=== PATIENT | female | born 1990 | race Caucasian/White ===

== ENCOUNTER 2020-08-05 19:59 | Inpatient (IN) | payer BC ==
[~2020-08-05] VITALS: Ht 167.6 cm; Wt 66.4 kg
[2020-08-05] MEDS ORDERED: FENTANYL-0.9 % NACL/PF 100 ML IV PRN (20:05)
[2020-08-05] MEDS ORDERED: midazolam 100mg in NS 100ml 100 ML IV PRN (20:05)
[2020-08-05] MEDS ORDERED: ondansetron/PF 4mg/2ml inj IV ONE (20:40)
[2020-08-05 20:45] LABS: ABG BASE EXCESS -5.5 mmol/L (-2.0-2.0); ABG HCO3 21.1 mmol/L (22.0-26.0); ABG PCO2 (T) 42.9 mmHg (32.0-45.0); ABG PO2 (T) 91.5 mmHg (75.0-100.0); ALLEN'S TEST POSITIVE; FCOHb 0.4 % (0.0-3.9); FMetHb 0.3 % (0.0-1.5); FO2Hb 96.3 % (94-97); PATIENT TEMPERATURE 35.8; PEEP 5 cm H2O; RESPIRATORY RATE 16 b/min; TIDAL VOLUME 400 mL; TOTAL HEMOGLOBIN 14.6 G/dl (12.0-16.0)
--- NOTE | 2020-08-05 21:00 | NUR ---
TALKED TO PT SISTER "CORA" ON PHONE, GAVE UPDATE, NO FURTHER QUESTIONS
[2020-08-05 21:03] LABS: BASOPHILS % (AUTO) 0.1 % (0-1); EOSINOPHILS # (AUTO) 0.1 X10'3 (0-0.9); EOSINOPHILS % (AUTO) 0.4 % (0-6); HEMATOCRIT 42.7 % (35.0-45.0); HEMOGLOBIN 13.7 g/dl (12.0-16.0); LYMPHOCYTES # (AUTO) 0.7 X10'3 (1.1-4.8); LYMPHOCYTES % (AUTO) 4.2 % (21-51); MEAN CORPUSCULAR HEMOGLOBIN 29.5 PG (27.0-31.0); MEAN CORPUSCULAR HGB CONC 32.1 g/dL (33.0-36.5); MEAN CORPUSCULAR VOLUME 91.8 FL (78-98); MONOCYTES # (AUTO) 1.1 X10'3 (0-0.9); NEUTROPHILS # (AUTO) 15.9 X10'3 (1.8-7.7); NEUTROPHILS % (AUTO) 89.3 % (42-75); PLATELET COUNT 303 X10'3 (140-440); RED BLOOD COUNT 4.65 X10'6 (4.20-5.60); RED CELL DISTRIBUTION WIDTH 13.8 % (11.5-14.5); WHITE BLOOD COUNT 17.7 X10'3 (4.5-11.0)
[2020-08-05 21:17] LABS: ALANINE AMINOTRANSFERASE 67 U/L (12-78); ALBUMIN 3.1 G/DL (3.4-5.0); ALBUMIN/GLOBULIN RATIO 1.2 (1.1-1.5); ALKALINE PHOSPHATASE 43 IU/L (46-116); ANION GAP 9 (8-16); ASPARTATE AMINO TRANSFERASE 65 U/L (10-37); BILIRUBIN,TOTAL 0.2 MG/DL (0.1-1.0); BLOOD UREA NITROGEN 9 MG/DL (7-18); BUN/CREATININE RATIO 11.7 (6.6-38.0); CALCIUM 6.7 MG/DL (8.5-10.1); CHLORIDE 111 MMOL/L (99-107); CREATININE 0.77 MG/DL (0.40-0.90); GLUCOSE 115 MG/DL (70-104); POTASSIUM 3.7 MMOL/L (3.5-5.1); SODIUM 144 MMOL/L (135-145); TOTAL PROTEIN 5.7 G/DL (6.4-8.2); eGFR 90 ML/MIN
--- NOTE | 2020-08-05 21:18 | NUR ---
PT BP 83/52, DECREASED SEDATION, NO EFFECT ON BP. EDWARDS AWARE. ORDERED 1 L NS BOLUS
--- NOTE | 2020-08-05 21:35 | NUR ---
LEON PREPARING FOR CENTRAL LINE PROCEDURE, PT BP 80/50, LEON VERBAL ORDER TO START LEVOPHED
[2020-08-05] MEDS ORDERED: NORepinephrine 8mg/ 250ml NS 250 ML IV SCH (21:40)
[2020-08-05] MEDS ORDERED: NORepinephrine 8mg/ 250ml NS 250 ML IV PRN (21:45)
[2020-08-05] MEDS ORDERED: acetaminophen 325mg tablet PO PRN ×2 (21:45)
[2020-08-05] MEDS ORDERED: Neutra Phos packet PO PRN (21:45)
[2020-08-05] MEDS ORDERED: sodium phosphate inj. 30 MMOL in dextrose 5%-water 250 ML IV PRN (21:45)
[2020-08-05] MEDS ORDERED: magnesium 4gm in 100ml NS 100 ML IV PRN (21:45)
[2020-08-05] MEDS ORDERED: sodium phosphate inj. 15 MMOL in dextrose 5%-water 250 ML IV PRN (21:45)
[2020-08-05] MEDS ORDERED: magnesium hydroxide 30ml (MOM) UD suspension PO PRN (21:45)
[2020-08-05] MEDS ORDERED: acetaminophen 650mg rectal suppository RC PRN (21:45)
[2020-08-05] MEDS ORDERED: potassium Cl 20mEq/100mL bag 100 ML IV PRN (21:45)
[2020-08-05 22:14] LABS: URINE AMPHETAMINE SCREEN NEGATIVE (Neg); URINE BARBITUATE SCREEN NEGATIVE (Neg); URINE BENZODIAZEPINES SCREEN POSITIVE (Neg); URINE CANNABINOID SCREEN NEGATIVE (Neg); URINE COCAINE SCREEN NEGATIVE (Neg); URINE METHADONE SCREEN NEGATIVE (Neg); URINE OPIATE SCREEN NEGATIVE (Neg); URINE PHENCYCLIDINE SCREEN NEGATIVE (Neg)
[2020-08-05 22:29] LABS: MAGNESIUM 2.2 MG/DL (1.5-2.4); PHOSPHORUS 4.5 MG/DL (2.3-4.5)
[2020-08-05] MEDS: ipratropium/albuterol 3ml nebule NEB SCH (22:44)
[2020-08-05] MEDS: CefTRIAXone 2gm/D5W 50ml BAG 50 ML IV SCH (23:13)
[2020-08-05] MEDS: sodium chloride 0.45% 1,000 ML IV SCH (23:14)
[2020-08-06] VITALS (15 sets, daily range): BP systolic 96–119; BP diastolic 47–72
[2020-08-06 00:10] LABS: CLARITY,URINE CLEAR (Clear); COLOR,URINE YELLOW (Yellow); GLUCOSE, URINE 250 mg/dl (Neg); KETONES,URINE TRACE mg/dl (Neg); LEUKOCYTE ESTERASE ,URINE NEGATIVE (Neg); NITRITES, URINE NEGATIVE (Neg); OCCULT BLOOD,URINE NEGATIVE (Neg); PROTEIN,URINE NEGATIVE (Neg); UROBILINOGEN,URINE 0.2 E.U/dL (0.2-1.0)
[2020-08-06 00:13] LABS: UA COLLECTION TYPE FOLEY CATH
[2020-08-06] MEDS: azithromycin/NS 500mg/250ml 250 ML IV SCH ×2 (00:18→20:09)
[2020-08-06] MEDS: albuterol 2.5 MG/3 ML nebule NEB PRN ×3 (01:27→17:14)
[2020-08-06] MEDS: methylPREDNISolone sod succ 125mg/2ml vial IV SCH ×4 (01:52→20:10)
[2020-08-06] MEDS: ondansetron/PF 4mg/2ml inj IV PRN (01:52)
--- NOTE | 2020-08-06 01:54 | NUR ---
TURNED PATIENT TO RIGHT SIDE, PT BECAME AGITATED AND VOMITED. SUCTIONED AND ZOFRAN 4 MG PRN ADMINISTERED. VERSED BOLUSED. PT NOW LYING COMFORTABLY, RR EVEN AND UNLABORED, NO SIGNS OF DISTRESS. WILL CONTINUE TO MONITOR
[2020-08-06 03:05] LABS: BASOPHILS % (AUTO) 0.3 % (0-1); EOSINOPHILS % (AUTO) 0 % (0-6); HEMATOCRIT 39.6 % (35.0-45.0); HEMOGLOBIN 12.7 g/dl (12.0-16.0); LYMPHOCYTES # (AUTO) 0.4 X10'3 (1.1-4.8); LYMPHOCYTES % (AUTO) 3.2 % (21-51); MEAN CORPUSCULAR HEMOGLOBIN 29.3 PG (27.0-31.0); MEAN CORPUSCULAR HGB CONC 32.1 g/dL (33.0-36.5); MEAN CORPUSCULAR VOLUME 91.4 FL (78-98); MONOCYTES # (AUTO) 0.2 X10'3 (0-0.9); MONOCYTES % (AUTO) 1.6 % (2-12); NEUTROPHILS # (AUTO) 11.7 X10'3 (1.8-7.7); NEUTROPHILS % (AUTO) 94.9 % (42-75); PLATELET COUNT 334 X10'3 (140-440); RED BLOOD COUNT 4.33 X10'6 (4.20-5.60); RED CELL DISTRIBUTION WIDTH 14.1 % (11.5-14.5); WHITE BLOOD COUNT 12.3 X10'3 (4.5-11.0)
[2020-08-06] MEDS: ipratropium/albuterol 3ml nebule NEB SCH ×6 (03:12→23:23)
[2020-08-06 03:17] LABS: PARTIAL THROMBOPLASTIN TIME 21 SECONDS (22-32)
[2020-08-06 03:22] LABS: ALANINE AMINOTRANSFERASE 67 U/L (12-78); ALBUMIN 3.4 G/DL (3.4-5.0); ALBUMIN/GLOBULIN RATIO 1.2 (1.1-1.5); ALKALINE PHOSPHATASE 45 IU/L (46-116); ANION GAP 14 (8-16); ASPARTATE AMINO TRANSFERASE 46 U/L (10-37); BILIRUBIN,TOTAL 0.4 MG/DL (0.1-1.0); BLOOD UREA NITROGEN 8 MG/DL (7-18); BUN/CREATININE RATIO 11.1 (6.6-38.0); CALCIUM 7.2 MG/DL (8.5-10.1); CHLORIDE 106 MMOL/L (99-107); CREATININE 0.72 MG/DL (0.40-0.90); GLUCOSE 166 MG/DL (70-104); POTASSIUM 3.8 MMOL/L (3.5-5.1); SODIUM 140 MMOL/L (135-145); TOTAL CARBON DIOXIDE 20.1 MMOL/L (24-32); TOTAL PROTEIN 6.3 G/DL (6.4-8.2); eGFR > 90 ML/MIN
[2020-08-06 03:28] LABS: MAGNESIUM 1.8 MG/DL (1.5-2.4); PHOSPHORUS 1.9 MG/DL (2.3-4.5)
--- NOTE | 2020-08-06 05:25 | NUR ---
RT SUCTIONING TUBE. DURING SUCTIONING PT BEGAN VOMITING, AWAKE, AND ATTEMPTED TO SIT UP. VERSED 1 MG BOLUSED.
[2020-08-06 06:06] LABS: ABG BASE EXCESS -5.3 mmol/L (-2.0-2.0); ABG HCO3 19.1 mmol/L (22.0-26.0); ABG OXYGEN SATURATION 95.4 % (94-97); ABG PCO2 (T) 35.1 mmHg (32.0-45.0); ABG PO2 (T) 79.7 mmHg (75.0-100.0); ALLEN'S TEST POSITIVE; FCOHb 0.2 % (0.0-3.9); FMetHb 0.2 % (0.0-1.5); PATIENT TEMPERATURE 37.7; PEEP 5 cm H2O; RESPIRATORY RATE 16 b/min; TIDAL VOLUME 400 mL; TOTAL HEMOGLOBIN 13.2 G/dl (12.0-16.0)
[2020-08-06] MEDS ORDERED: FLUT1AER PO (06:11)
[2020-08-06] MEDS: FENTANYL-0.9 % NACL/PF 100 ML IV PRN ×2 (06:39→16:51)
--- NOTE | 2020-08-06 06:59 | NUR ---
RT ISAEL AT BEDSIDE TO ASSESS PATIENT. MADE AWARE VENT ALARM FOR PEEK PRESSURE ALARM PER NOC SHIFT HAS BEEN ALARMING FOR MOST OF NIGHT, RT TO ADMINISTER BREATHING TREATMENT PER ORDER (SEE EMAR).
--- NOTE | 2020-08-06 07:31 | NUR ---
CORA ROMERO "SISTER" [phone].
[2020-08-06] MEDS: docusate sodium 100mg/10ml UD cup PO SCH ×2 (08:00→20:09)
[2020-08-06] MEDS: pantoprazole 40 MG vial IV SCH (08:09)
[2020-08-06] MEDS: enoxaparin 40mg/0.4ml syringe SUBCUT SCH (08:09)
--- NOTE | 2020-08-06 09:56 | NUR ---
[employer]CIAL [employer]ER AT BEDSIDE.
--- NOTE | 2020-08-06 10:10 | NUR ---
DR ARCHULETA IN TO ASSESS PATIENT AT THIS TIME TIME. ALL QUESTIONS AND CONCERNS ADDRESSED.
--- NOTE | 2020-08-06 11:22 | NUR ---
RT AT BEDSIDE TO ASSESS PATIENT/GIVE BREATHING TX (SEE EMAR).
--- NOTE | 2020-08-06 12:29 | NUR ---
Patient arrived from ED, ventilator followed directly after, patient was transfered to the bed, skin was assessed, patient's IJ functioning properly with gtts running, jaquez catheter present, weighed and repositioned in bed. Notified Dr. Naqvi that the patient was in room, will continue to monitor.
--- NOTE | 2020-08-06 13:08 | NUR ---
Initial: Pt intubated DX acute respiratory failure s/p cardiac arrest, possible aspiration from vomiting episode in ED, and status asthmaticus per EMR. Hx asthma negative for flu and covid-19 per EMR. L NG in place w/ MAP 76 this AM. Pending scaled wt this admit; EN recs below using IBW pending updated wt. Will continue to monitor for nutrition support needs on vent. Rec: 1. IF TF; Vital AF at 60ml/hr goal 2. IF TF; additional water flush 200ml Q4 3. IF TF; PALB Q /; daily wts 4. routine bowel care 5. upon extubation; advance diet as medically indicated to regular; consider [employer] BSS given possible vomiting w/ aspiration in ER per EMR Addendum: 08/06/20 at [address] Amended: Links added.
[2020-08-06] MEDS: midazolam 100mg in NS 100ml 100 ML IV PRN ×2 (13:56→20:19)
[2020-08-06] MEDS: sodium chloride 0.45% 1,000 ML IV SCH (15:35)
[2020-08-06 16:16] LABS: ABG BASE EXCESS -8.4 mmol/L (-2.0-2.0); ABG HCO3 16.7 mmol/L (22.0-26.0); ABG OXYGEN SATURATION 90.1 % (94-97); ABG PCO2 (T) 33.7 mmHg (32.0-45.0); ABG PO2 (T) 58.6 mmHg (75.0-100.0); ALLEN'S TEST POSITIVE; FMetHb 0.2 % (0.0-1.5); FO2Hb 89.9 % (94-97); PEEP 8 cm H2O; RESPIRATORY RATE 16 b/min; TIDAL VOLUME 400 mL; TOTAL HEMOGLOBIN 12.9 G/dl (12.0-16.0)
--- NOTE | 2020-08-06 18:20 | NUR ---
Patient in room CICU 2010. I have received report from MELISSA Flowers and had the opportunity to ask questions and assume patient care. Patient is intubated and sedated, resting comfortably. I will continue to monitor.
[2020-08-06] MEDS ORDERED: iohexol 350MG/ML 100ml bottle IV ONE (19:41)
[2020-08-06] MEDS: CISatracurium besylate inj. 100 MG in normal saline 100ml IV soln 90 ML IV SCH (19:44)
--- NOTE | 2020-08-06 20:00 | NUR ---
Urine output is poor, I flushed her catheter and urine is flowing now, I will continue to monitor.
[2020-08-06] MEDS: lactobacillus rhamnosus 10,000 MMU CELLS/CAPSULE PO SCH (20:09)
[2020-08-06] MEDS ORDERED: labetalol 20mg/4ml (5mg/ml) syringe IV PRN (20:10)
[2020-08-06] MEDS: CefTRIAXone 2gm/D5W 50ml BAG 50 ML IV SCH (22:07)
[2020-08-07] VITALS (23 sets, daily range): BP systolic 62–125; BP diastolic 55–76
[2020-08-07] MEDS: sodium chloride 0.45% 1,000 ML IV SCH ×3 (00:25→20:03)
[2020-08-07] MEDS: albuterol 2.5 MG/3 ML nebule NEB PRN ×4 (01:12→16:56)
[2020-08-07] MEDS: methylPREDNISolone sod succ 125mg/2ml vial IV SCH ×4 (02:17→20:03)
[2020-08-07] MEDS: mineral oil/petrolatum ophthal oint EACHEYE SCH ×4 (02:17→20:02)
[2020-08-07] MEDS: FENTANYL-0.9 % NACL/PF 100 ML IV PRN ×3 (02:17→14:56)
[2020-08-07] MEDS: midazolam 100mg in NS 100ml 100 ML IV PRN ×3 (02:51→16:15)
[2020-08-07] MEDS: ipratropium/albuterol 3ml nebule NEB SCH ×6 (02:56→23:32)
[2020-08-07 03:13] LABS: BASOPHILS % (AUTO) 0.1 % (0-1); EOSINOPHILS % (AUTO) 0 % (0-6); HEMATOCRIT 35.8 % (35.0-45.0); HEMOGLOBIN 11.5 g/dl (12.0-16.0); LYMPHOCYTES # (AUTO) 0.8 X10'3 (1.1-4.8); LYMPHOCYTES % (AUTO) 4.2 % (21-51); MEAN CORPUSCULAR HEMOGLOBIN 29.4 PG (27.0-31.0); MEAN CORPUSCULAR HGB CONC 32.2 g/dL (33.0-36.5); MEAN CORPUSCULAR VOLUME 91.2 FL (78-98); MONOCYTES # (AUTO) 0.9 X10'3 (0-0.9); MONOCYTES % (AUTO) 4.8 % (2-12); NEUTROPHILS # (AUTO) 16.2 X10'3 (1.8-7.7); NEUTROPHILS % (AUTO) 90.9 % (42-75); PLATELET COUNT 320 X10'3 (140-440); RED BLOOD COUNT 3.92 X10'6 (4.20-5.60); WHITE BLOOD COUNT 17.9 X10'3 (4.5-11.0)
[2020-08-07 03:22] LABS: ALANINE AMINOTRANSFERASE 50 U/L (12-78); ALBUMIN 3.4 G/DL (3.4-5.0); ALBUMIN/GLOBULIN RATIO 1.2 (1.1-1.5); ALKALINE PHOSPHATASE 40 IU/L (46-116); ANION GAP 10 (8-16); ASPARTATE AMINO TRANSFERASE 34 U/L (10-37); BILIRUBIN,TOTAL 0.2 MG/DL (0.1-1.0); BLOOD UREA NITROGEN 8 MG/DL (7-18); BUN/CREATININE RATIO 12.1 (6.6-38.0); CALCIUM 7.6 MG/DL (8.5-10.1); CHLORIDE 106 MMOL/L (99-107); CREATININE 0.66 MG/DL (0.40-0.90); GLUCOSE 159 MG/DL (70-104); PHOSPHORUS 2.8 MG/DL (2.3-4.5); POTASSIUM 3.4 MMOL/L (3.5-5.1); SODIUM 140 MMOL/L (135-145); TOTAL CARBON DIOXIDE 23.7 MMOL/L (24-32); TOTAL PROTEIN 6.2 G/DL (6.4-8.2); eGFR > 90 ML/MIN
[2020-08-07 04:21] LABS: ABG BASE EXCESS -5.1 mmol/L (-2.0-2.0); ABG HCO3 19.6 mmol/L (22.0-26.0); ABG OXYGEN SATURATION 96.8 % (94-97); ABG PCO2 (T) 34.3 mmHg (32.0-45.0); ABG PO2 (T) 90.8 mmHg (75.0-100.0); FMetHb 0.3 % (0.0-1.5); FO2Hb 96.5 % (94-97); PATIENT TEMPERATURE 36.5; PEEP 5 cm H2O; RESPIRATORY RATE 16 b/min; TIDAL VOLUME 400 mL; TOTAL HEMOGLOBIN 12.7 G/dl (12.0-16.0)
[2020-08-07] MEDS: lactobacillus rhamnosus 10,000 MMU CELLS/CAPSULE PO SCH ×2 (07:57→20:02)
[2020-08-07] MEDS: pantoprazole 40 MG vial IV SCH (07:57)
[2020-08-07] MEDS: docusate sodium 100mg/10ml UD cup PO SCH ×2 (07:57→20:02)
[2020-08-07] MEDS: enoxaparin 40mg/0.4ml syringe SUBCUT SCH (07:58)
--- NOTE | 2020-08-07 09:45 | NUR ---
ADVANCED NG APPROX 6CM PER DR SIBLEY RECOMMENDATION
[2020-08-07] MEDS ORDERED: dexmedetomidin/NS 400mcg/100ml 100 ML IV SCH (12:15)
[2020-08-07] MEDS: dexmedetomidine/D5W 100mL 100 ML IV SCH ×2 (12:36→22:14)
--- NOTE | 2020-08-07 18:43 | NUR ---
Patient in room CICU 2010. I have received report from MELISSA Jenkins and had the opportunity to ask questions and assume patient care. Patient is still intubated/sedated.
[2020-08-07] MEDS: budesonide 0.5mg/2ml UD nebule IH SCH (19:50)
[2020-08-07] MEDS: azithromycin/NS 500mg/250ml 250 ML IV SCH (20:03)
[2020-08-07] MEDS: CefTRIAXone 2gm/D5W 50ml BAG 50 ML IV SCH (22:05)
[2020-08-08] VITALS (23 sets, daily range): BP systolic 123–159; BP diastolic 76–102
[2020-08-08] MEDS: FENTANYL-0.9 % NACL/PF 100 ML IV PRN ×2 (00:32→12:59)
[2020-08-08] MEDS: mineral oil/petrolatum ophthal oint EACHEYE SCH ×4 (02:24→20:05)
[2020-08-08] MEDS: methylPREDNISolone sod succ 125mg/2ml vial IV SCH ×4 (02:24→20:06)
[2020-08-08] MEDS: ipratropium/albuterol 3ml nebule NEB SCH ×6 (02:54→23:24)
[2020-08-08 02:58] LABS: BASOPHILS % (AUTO) 0 % (0-1); EOSINOPHILS % (AUTO) 0 % (0-6); HEMATOCRIT 35.9 % (35.0-45.0); HEMOGLOBIN 11.6 g/dl (12.0-16.0); LYMPHOCYTES # (AUTO) 0.5 X10'3 (1.1-4.8); LYMPHOCYTES % (AUTO) 3.4 % (21-51); MEAN CORPUSCULAR HEMOGLOBIN 29.3 PG (27.0-31.0); MEAN CORPUSCULAR HGB CONC 32.2 g/dL (33.0-36.5); MEAN PLATELET VOLUME 7.7 FL (7.4-10.4); MONOCYTES # (AUTO) 0.6 X10'3 (0-0.9); NEUTROPHILS # (AUTO) 12.8 X10'3 (1.8-7.7); NEUTROPHILS % (AUTO) 92.6 % (42-75); PLATELET COUNT 284 X10'3 (140-440); RED BLOOD COUNT 3.95 X10'6 (4.20-5.60); RED CELL DISTRIBUTION WIDTH 14.1 % (11.5-14.5); WHITE BLOOD COUNT 13.9 X10'3 (4.5-11.0)
[2020-08-08] MEDS: midazolam 100mg in NS 100ml 100 ML IV PRN ×2 (03:01→16:47)
[2020-08-08 03:12] LABS: ALANINE AMINOTRANSFERASE 70 U/L (12-78); ALBUMIN 3.4 G/DL (3.4-5.0); ALBUMIN/GLOBULIN RATIO 1.2 (1.1-1.5); ALKALINE PHOSPHATASE 45 IU/L (46-116); ANION GAP 8 (8-16); ASPARTATE AMINO TRANSFERASE 75 U/L (10-37); BILIRUBIN,TOTAL 0.3 MG/DL (0.1-1.0); BLOOD UREA NITROGEN 10 MG/DL (7-18); BUN/CREATININE RATIO 16.9 (6.6-38.0); CALCIUM 8.2 MG/DL (8.5-10.1); CHLORIDE 106 MMOL/L (99-107); CREATININE 0.59 MG/DL (0.40-0.90); GLUCOSE 150 MG/DL (70-104); MAGNESIUM 2.6 MG/DL (1.5-2.4); PHOSPHORUS 2.6 MG/DL (2.3-4.5); POTASSIUM 3.5 MMOL/L (3.5-5.1); SODIUM 140 MMOL/L (135-145); TOTAL CARBON DIOXIDE 25.6 MMOL/L (24-32); TOTAL PROTEIN 6.2 G/DL (6.4-8.2); eGFR > 90 ML/MIN
[2020-08-08 03:50] LABS: ABG BASE EXCESS -0.9 mmol/L (-2.0-2.0); ABG HCO3 22.2 mmol/L (22.0-26.0); ABG OXYGEN SATURATION 96.9 % (94-97); ABG PCO2 (T) 30.7 mmHg (32.0-45.0); ABG PO2 (T) 80.9 mmHg (75.0-100.0); FCOHb 0.3 % (0.0-3.9); FMetHb 0.2 % (0.0-1.5); FO2Hb 96.4 % (94-97); PEEP 5 cm H2O; RESPIRATORY RATE 16 b/min; TIDAL VOLUME 400 mL; TOTAL HEMOGLOBIN 12.8 G/dl (12.0-16.0)
[2020-08-08] MEDS: sodium chloride 0.45% 1,000 ML IV SCH ×3 (05:03→19:58)
--- NOTE | 2020-08-08 06:23 | NUR ---
Problems reprioritized. Patient report given, questions answered & plan of care reviewed with MELISSA Barroso.
[2020-08-08] MEDS: budesonide 0.5mg/2ml UD nebule IH SCH ×2 (07:35→19:11)
[2020-08-08] MEDS: pantoprazole 40 MG vial IV SCH (09:11)
[2020-08-08] MEDS: docusate sodium 100mg/10ml UD cup PO SCH ×2 (09:11→20:06)
[2020-08-08] MEDS: lactobacillus rhamnosus 10,000 MMU CELLS/CAPSULE PO SCH ×2 (09:11→20:06)
[2020-08-08] MEDS: dexmedetomidine/D5W 100mL 100 ML IV SCH (09:12)
[2020-08-08] MEDS: enoxaparin 40mg/0.4ml syringe SUBCUT SCH (09:13)
--- NOTE | 2020-08-08 14:09 | NUR ---
TF consult: Pt remains intubated, documented with an NG tube in place. TF recommendations below. Still no documented BM, pt receiving routine bowel care with PRN bowel care available. Will continue to follow closely. Rec: 1. Continuous TF using Vital AF with 60 mL/hr goal. To begin at 20 mL/hr and advance by 20 mL Q8H as tolerated to goal rate. To provide: 1440 mL total volume/day, 1728 kcal, 108 g protein, and 1168 mL water 2. Additional 100 mL water flush Q4H 3. PALB Q /; daily wts 4. routine bowel care 5. upon extubation, advance diet as medically indicated to regular; consider BSS with ST given possible vomiting with aspiration in ER per EMR Addendum: 08/08/20 at [address] Amended: Links added.
--- NOTE | 2020-08-08 14:42 | NUR ---
Tube feeding started with Vital AF per md orders and director [employer] recommendations.
[2020-08-08] MEDS: CISatracurium besylate inj. 100 MG in normal saline 100ml IV soln 90 ML IV SCH (16:00)
--- NOTE | 2020-08-08 18:20 | NUR ---
Patient in room CICU 2010. I have received report from MELISSA Barroso and had the opportunity to ask questions and assume patient care. Patient is still intubated and sedated, the plan is to hold tube feed and d/c sedation @4am.
[2020-08-08] MEDS: azithromycin/NS 500mg/250ml 250 ML IV SCH (20:06)
[2020-08-08] MEDS: CefTRIAXone 2gm/D5W 50ml BAG 50 ML IV SCH (22:24)
[2020-08-09] VITALS (16 sets, daily range): BP systolic 107–134; BP diastolic 73–96
[2020-08-09] MEDS: mineral oil/petrolatum ophthal oint EACHEYE SCH ×3 (02:19→14:00)
[2020-08-09] MEDS: methylPREDNISolone sod succ 125mg/2ml vial IV SCH ×3 (02:19→14:19)
--- NOTE | 2020-08-09 02:19 | NUR ---
Patient waking up, pulled catheter out with her feet. I will put a new catheter in.
[2020-08-09 02:44] LABS: BASOPHILS % (AUTO) 0 % (0-1); EOSINOPHILS % (AUTO) 0 % (0-6); HEMATOCRIT 36.8 % (35.0-45.0); HEMOGLOBIN 11.9 g/dl (12.0-16.0); LYMPHOCYTES # (AUTO) 0.5 X10'3 (1.1-4.8); LYMPHOCYTES % (AUTO) 3.5 % (21-51); MEAN CORPUSCULAR HEMOGLOBIN 29.3 PG (27.0-31.0); MEAN CORPUSCULAR HGB CONC 32.4 g/dL (33.0-36.5); MEAN CORPUSCULAR VOLUME 90.3 FL (78-98); MEAN PLATELET VOLUME 7.8 FL (7.4-10.4); MONOCYTES # (AUTO) 1.1 X10'3 (0-0.9); MONOCYTES % (AUTO) 8.3 % (2-12); NEUTROPHILS # (AUTO) 11.5 X10'3 (1.8-7.7); NEUTROPHILS % (AUTO) 88.2 % (42-75); PLATELET COUNT 305 X10'3 (140-440); RED BLOOD COUNT 4.08 X10'6 (4.20-5.60); RED CELL DISTRIBUTION WIDTH 13.9 % (11.5-14.5)
[2020-08-09 03:11] LABS: ALANINE AMINOTRANSFERASE 211 U/L (12-78); ALBUMIN 3.3 G/DL (3.4-5.0); ALBUMIN/GLOBULIN RATIO 1.1 (1.1-1.5); ALKALINE PHOSPHATASE 48 IU/L (46-116); ANION GAP 5 (8-16); ASPARTATE AMINO TRANSFERASE 195 U/L (10-37); BILIRUBIN,TOTAL 0.6 MG/DL (0.1-1.0); BLOOD UREA NITROGEN 11 MG/DL (7-18); BUN/CREATININE RATIO 20.8 (6.6-38.0); CALCIUM 8.5 MG/DL (8.5-10.1); CHLORIDE 105 MMOL/L (99-107); CREATININE 0.53 MG/DL (0.40-0.90); GLUCOSE 129 MG/DL (70-104); MAGNESIUM 2.5 MG/DL (1.5-2.4); PHOSPHORUS 2.2 MG/DL (2.3-4.5); POTASSIUM 3.5 MMOL/L (3.5-5.1); SODIUM 138 MMOL/L (135-145); TOTAL CARBON DIOXIDE 27.7 MMOL/L (24-32); TOTAL PROTEIN 6.2 G/DL (6.4-8.2); eGFR > 90 ML/MIN
[2020-08-09] MEDS: ipratropium/albuterol 3ml nebule NEB SCH ×6 (03:13→23:47)
[2020-08-09 03:51] LABS: ABG BASE EXCESS 1.1 mmol/L (-2.0-2.0); ABG HCO3 25.3 mmol/L (22.0-26.0); ABG OXYGEN SATURATION 97.1 % (94-97); ABG PCO2 (T) 37.4 mmHg (32.0-45.0); ABG PO2 (T) 87.2 mmHg (75.0-100.0); FCOHb 0.3 % (0.0-3.9); FMetHb 0.1 % (0.0-1.5); FO2Hb 96.7 % (94-97); PATIENT TEMPERATURE 36.1; PEEP 5 cm H2O; RESPIRATORY RATE 14 b/min; TIDAL VOLUME 400 mL; TOTAL HEMOGLOBIN 12.8 G/dl (12.0-16.0)
[2020-08-09] MEDS: sodium chloride 0.45% 1,000 ML IV SCH (05:18)
--- NOTE | 2020-08-09 06:28 | NUR ---
Problems reprioritized. Patient report given, questions answered & plan of care reviewed with MELISSA Mccarthy.
[2020-08-09] MEDS: budesonide 0.5mg/2ml UD nebule IH SCH ×2 (07:09→19:43)
[2020-08-09] MEDS: pantoprazole 40 MG vial IV SCH (10:25)
[2020-08-09] MEDS: enoxaparin 40mg/0.4ml syringe SUBCUT SCH (10:26)
[2020-08-09] MEDS: docusate sodium 100mg/10ml UD cup PO SCH ×2 (10:26→20:48)
[2020-08-09] MEDS: lactobacillus rhamnosus 10,000 MMU CELLS/CAPSULE PO SCH ×2 (10:26→20:49)
--- NOTE | 2020-08-09 11:06 | NUR ---
Pt extubated self, restraints on but pt sat up and puled on tube. Pt stable placed on 2L N/C with 99% O2 saturation. Respiratory at bedside. Dr. Enrique aware. Pt to be transferred to PCU with tele. Pt still a little confused and drowsy. CL removed and dressed.
--- NOTE | 2020-08-09 12:07 | NUR ---
F/u: Pt has been extubated. ST has been consulted for BSS. Will continue to follow closely and monitor need for nutrition intervention pending PO diet advancement. Rec: 1. Advance diet as medically indicated to regular, pending BSS with ST 2. Routine bowel care 3. Scaled weights per rx Addendum: 08/09/20 at [address] Amended: Links added.
--- NOTE | 2020-08-09 13:03 | NUR ---
Patient in room CICU 2010. I have received report from Fabio TORRES and had the opportunity to ask questions and assume patient care.
--- NOTE | 2020-08-09 13:22 | NUR ---
Problems reprioritized. Patient report given, questions answered & plan of care reviewed with Tircia TORRES. Pt's leonid curry. Pt transferred to U 3016B with belongings and chart in stable condition.
[2020-08-09] MEDS: ondansetron/PF 4mg/2ml inj IV PRN ×2 (14:19→20:48)
[2020-08-09] MEDS ORDERED: HYDROcodone/acetaminophen 5mg/325mg tablet PO PRN (15:35)
--- NOTE | 2020-08-09 16:13 | NUR ---
Called Dr Enrique and left a message about this patient. Patient feels like she has to pee, is unable to void, bladder scan showed 1000ml. Addendum: 08/09/20 at 1617 by Basilia Narvaez RN Talked to Dr Enrique via telephone, received orders to bladder scan the pt q4hrs and to straight cath for bladder ml > 600. I also received orders for tramadol for pain.
[2020-08-09] MEDS ORDERED: traMADol 50MG tablet PO PRN (16:20)
--- NOTE | 2020-08-09 18:15 | NUR ---
Problems reprioritized. Patient report given, questions answered & plan of care reviewed with Cassie TORRES.
--- NOTE | 2020-08-09 18:19 | NUR ---
Attempted to call the patients sister, Stephenie, at [phone] but there was no answer and I was unable to leave a message as the voicemail box for this number is full. Night RN, Cassie, notified of this event.
[2020-08-09] MEDS: azithromycin/NS 500mg/250ml 250 ML IV SCH (21:04)
--- NOTE | 2020-08-10 00:33 | NUR ---
Patient in room PCU 3016. I have received report from Tricia TORRES and had the opportunity to ask questions and assume patient care.
[2020-08-10 02:00] VITALS: BP 110/64
[2020-08-10] MEDS: ipratropium/albuterol 3ml nebule NEB SCH ×3 (03:53→11:19)
[2020-08-10 06:00] VITALS: BP 100/65
[2020-08-10 06:02] LABS: BASOPHILS % (AUTO) 0.1 % (0-1); EOSINOPHILS % (AUTO) 0 % (0-6); HEMATOCRIT 33.4 % (35.0-45.0); HEMOGLOBIN 11.2 g/dl (12.0-16.0); LYMPHOCYTES # (AUTO) 1.3 X10'3 (1.1-4.8); MEAN CORPUSCULAR HEMOGLOBIN 30.1 PG (27.0-31.0); MEAN CORPUSCULAR HGB CONC 33.4 g/dL (33.0-36.5); MEAN CORPUSCULAR VOLUME 90.1 FL (78-98); MONOCYTES % (AUTO) 15.5 % (2-12); NEUTROPHILS # (AUTO) 9.7 X10'3 (1.8-7.7); NEUTROPHILS % (AUTO) 74.4 % (42-75); PLATELET COUNT 281 X10'3 (140-440)
[2020-08-10 06:19] LABS: ALANINE AMINOTRANSFERASE 534 U/L (12-78); ALBUMIN 3.2 G/DL (3.4-5.0); ALBUMIN/GLOBULIN RATIO 1.2 (1.1-1.5); ALKALINE PHOSPHATASE 57 IU/L (46-116); ANION GAP 8 (8-16); ASPARTATE AMINO TRANSFERASE 262 U/L (10-37); BILIRUBIN,TOTAL 0.4 MG/DL (0.1-1.0); BLOOD UREA NITROGEN 16 MG/DL (7-18); BUN/CREATININE RATIO 28.6 (6.6-38.0); CALCIUM 8.2 MG/DL (8.5-10.1); CHLORIDE 104 MMOL/L (99-107); CREATININE 0.56 MG/DL (0.40-0.90); GLUCOSE 119 MG/DL (70-104); MAGNESIUM 2.3 MG/DL (1.5-2.4); PHOSPHORUS 2.7 MG/DL (2.3-4.5); POTASSIUM 3.5 MMOL/L (3.5-5.1); PREALBUMIN 26.5 MG/DL (19-36); SODIUM 140 MMOL/L (135-145); TOTAL CARBON DIOXIDE 28.3 MMOL/L (24-32); TOTAL PROTEIN 5.8 G/DL (6.4-8.2); eGFR > 90 ML/MIN
--- NOTE | 2020-08-10 06:32 | NUR ---
Problems reprioritized. Patient report given, questions answered & plan of care reviewed with Gail Headley.
[2020-08-10] MEDS ORDERED: pantoprazole 40mg Tablet.DR PO SCH (07:30)
[2020-08-10] MEDS: budesonide 0.5mg/2ml UD nebule IH SCH (07:49)
[2020-08-10] MEDS: docusate sodium 100mg/10ml UD cup PO SCH (08:37)
[2020-08-10] MEDS: lactobacillus rhamnosus 10,000 MMU CELLS/CAPSULE PO SCH (08:37)
[2020-08-10] MEDS: ondansetron/PF 4mg/2ml inj IV PRN (08:53)
[2020-08-10 10:00] VITALS: BP 118/77
[2020-08-10] MEDS ORDERED: azithromycin 250mg tablet PO SCH (13:10)
[2020-08-10] MEDS ORDERED: AZI25OT PO (13:28)
--- NOTE | 2020-08-10 15:22 | NUR ---
Per MD orders, patient stable for discharge home. New prescriptions called in to pharmacy of preference. Discharge instructions reviewed at bedside and all questions answered to patient satisfaction. PIV discontinued cannula intact. Tele monitoring discontinued. All belongings sent with patient. Transferred to private vehicle via wheelchair accompanied by aide.
== END 2020-08-10 15:01 | disposition home or self-care (01) | DRG 208 ==
LOC: ER 20:00 → ED HOLD 21:43 → CICU 2S 08-06 11:58 → PCU 3S 08-09 13:15
PROVIDERS: ADMIT Internal Medicine Critical Care Medicine; ATTEND Internal Medicine Critical Care Medicine
PROC: 5A1945Z Respiratory Ventilation, 24-96 Consecutive Hours (ICD-10-PCS; 2020-08-05)
PROC: 0BH17EZ Insertion of Endotracheal Airway into Trachea, Via Natural or Artificial Opening (ICD-10-PCS; 2020-08-05)
PROC: B32T1ZZ Computerized Tomography (CT Scan) of Left Pulmonary Artery using Low Osmolar Contrast (ICD-10-PCS; principal; 2020-08-06)
PROC: B32S1ZZ Computerized Tomography (CT Scan) of Right Pulmonary Artery using Low Osmolar Contrast (ICD-10-PCS; 2020-08-06)
DX: J96.00 Acute respiratory failure, unspecified whether with hypoxia or hypercapnia (principal); I46.9 Cardiac arrest, cause unspecified; J45.902 Unspecified asthma with status asthmaticus; B34.9 Viral infection, unspecified; Z79.899 Other long term (current) drug therapy
CPT/HCPCS: 36415; 36556; 36600; 71045; 71275; 80053; 80305; 81003; 82330; 82803; 82948; 83605; 83735; 83880; 84100; 84134; 84145; 84484; 85018; 85025; 85610; 85730; 87040; 87081; 87502; 87503; 92508; 92616; 93005; 93306; 94002; 94003; 94640; 94760; 94799; 97110; 97112; 97161; 97530; 97535; 99291; C9113; G0378; J0456; J0696; J1650; J2405; J2930; J3010; J3480; J7626; Q9967